=== PATIENT | female | born 1975 | race Caucasian/White ===

== ENCOUNTER 2016-11-23 14:56 | Inpatient (IN) | payer OTHER ==
--- NOTE | ~2016-11-23 | US85 ---
[facility] A Service of [facility] RADIOLOGY TEXT RESULTS PATIENT: CARLO CORREIA LOCATION: [address] : 75 UNIT #: [id number] AGE: [address]: Vazquez Shaw III, MD SEX: F ORDER DR: [id number] [facility] [address] [place], [place] [address] [id number] I MR#: [id number] Acc #: [id number] NAME: CARLO CORREIA : 1975 SEX: F STUDY DATE/TIME: 11/24/2016 10:34 UNIT: [facility] ROOM: [facility] STUDY DESCRIPTION: LE Veins Unilat or Ltd Stdy Attending Physician: Vazquez Shaw III, M.D. Ordering Physician: Jasson Daugherty M.D. Primary Care Physician: Primary Care Physician No MEDICAL IMAGING REPORT This report is preliminary unless electronic signature is present EXAM Left lower extremity venous duplex 11/24/2016 HISTORY Left lower extremity edema in calf and knee for 2 weeks. Evaluate for deep vein thrombosis. TECHNIQUE Venous ultrasound examination of the left lower extremity was performed using grayscale, spectral Doppler and color flow Doppler imaging. FINDINGS The examination is negative. There is no evidence of left lower extremity deep venous thrombus from the groin to the lower calf. Visualized greater saphenous vein is also patent. IMPRESSION Negative examination. No evidence of left lower extremity deep venous thrombosis. Dictated by... Mannie Britt M.D. THIS IS AN ELECTRONICALLY VERIFIED REPORT Mannie Britt M.D. at 11/25/2016 6:17 AM KRT/to TD: 11/24/2016 13:34 JOB #: [id number] MEDICAL IMAGING REPORT Page 1 of 1 COPY
--- NOTE | ~2016-11-23 | A ---
[facility] Nutrition Therapy DATE: 11/24/16 Patient: CARLO CORREIA Physician: JOLANTA Address: [address] [place] [address] Room/Bed: [address], Zip: [place] [address] Admit Date: 11/23/16 Date of : 75 Height: 5 5 Weight: 137 62.5 NUTRITIONAL ASSESSMENT: REASON: NPO in ICU 41 yo female admitted for abdominal pain and distension s/p exploratory laparatomy and repair of perforated ulcer PMH: Longstanding EtOH abuse, opiod abuse, asthma, withdrawal seizures Anthropometrics: Ht: 64" Wt: 62.5 kg BMI: 23.7 Labs: Na+ 131 Cl- 94 Gluc 158 Ca++ 7.4 Alb 1.6 Meds: Therapeutic formula, D5%, phenergan, loperamide, protonix, KCl, MgSO4, thiamine, folvite I/O & Bowel function: 5194/430, last BM 11/18, NG to LWS Skin Integrity: Intact abrasion left knee Closed surgical incision midline abdomen Edema: Pitting 2+ left lower leg Diet: NPO Assessment: Chart reviewed, events noted. 41 yo female admitted for abdominal pain now s/p exploratory laparatomy and repair of perforated ulcer. CT revealed perihepatic ascites, scattered ascites throughout abdomen, and hepatomegaly and steatosis. Pt is strictly NPO at this time, with no plans for nutrition support as of yet. NG to LWS with minimal output per RN report. Pt has been started on CIWA protocol, with a significant h/o EtOH abuse. Pt is moaning, yelling out in room, not appropriate for diet education at this time. Per previous weights in [facility], the pt weighed ~61.4 kg in February 2016, with current weight 62.5 kg. If weights in [facility] are accurate, it does not appear that the pt has lost weight; however, she is noted to have ascites and fluid accumulation. Pt likely has poor nutrition d/t EtOH abuse and GI issues. RD will follow up with the pt to make appropriate recommendations. Dx: Inadequate protein-energy intake RT recent abodminal surgery, PMH AEB NPO status. Intervention: 1. NPO 2. Advance to clear liquid diet once medicalyl feasible [facility] Nutrition Therapy DATE: 11/24/16 Patient: CARLO CORREIA Physician: JOLANTA Address: [address] [place] [address] Room/Bed: [address], Zip: [place] [address] Admit Date: 11/23/16 Date of : 75 Height: 5 5 Weight: 137 62.5 Monitoring, Evaluation and Goals: 1. Oral intake; monitor for diet advancement 2. Improve labs; Na+, glucose, Ca++ 3. GI; promote regular GI function 4. Skin; promote healing, prevent breakdown 5. Weight; prevent weight loss Recommendations: 1. Once medically feasible, advance the pt to a clear liquid diet as tolerated and order Ensure Clear TID for supplemental nutrition. 2. If the pt tolerates clear liquids without c/o n/v or abdominal pain, advance to a 2 gram Na+/ low fiber diet. RD will order supplements as appropriate. If the pt continually tolerates solid food, consider discontinuing low fiber restriction and adding a low fat restriction d/t hepatic steatosis. 3. If the pt is unable to consume nutrition PO, consider an alternative form of nutrition. RD will follow up with appropriate recommendations. Pt is at moderate nutritional risk. Respectfully, CAROL ANN PEARSON RD, LD Food and Nutritional Services [facility] cc: client file
--- NOTE | ~2016-11-23 | OR ---
Unit #: [id number] #: [id number] Patient: CARLO CORREIA [id number] [address] [place], [place] [address] [id number] I MR#: [id number] NAME: CARLO CORREIA ROOM: 464 Date of Procedure: 12/02/2016 Admission Date: 11/23/2016 Surgeon: Geovanny Mercedes P.A.-C- : 1975 Attending Physician: Vazquez Shaw III, M.D. Primary Care Physician: Noris Primary Care Physician PROCEDURE OPERATIVE NOTE REASON FOR PROCEDURE Left knee osteoarthritis. PROCEDURE PERFORMED Cortisone injection. DESCRIPTION OF PROCEDURE After sterile technique with alcohol prep, the patient's left knee was injected with 2 mL 1% Xylocaine and 1 mL of 80 mg of Depo-Medrol per sterile technique with alcohol prep. The patient tolerated the procedure well. There were no apparent complications. A sterile dressing was applied. The patient can follow up in the office in one to two weeks to check on her progress. Dictated by... Jenni Sin KF/bd TD: 12/02/2016 08:25 JOB #: [id number] PROCEDURE OPERATIVE NOTE Page 1 of 1 X X PROCEDURE OPERATIVE NOTE
--- NOTE | ~2016-11-23 | CR264 ---
[facility] A Service [facility] RADIOLOGY TEXT RESULTS PATIENT: CARLO CORREIA LOCATION: [facility] : 75 UNIT #: [id number] AGE: [address]: Vazquez Shaw III, MD SEX: F ORDER DR: [id number] [place] [id number] [facility]. [place], [place] [address] [id number] I MR#: [id number] Acc #: [id number] NAME: CARLO CORREIA : 1975 SEX: F STUDY DATE/TIME: 11/26/2016 10:09 UNIT: [facility] ROOM: [facility] STUDY DESCRIPTION: CR Upper GI Series W KUB Attending Physician: Vazquez Shaw III, M.D. Ordering Physician: Vazquez Shaw III, M.D. Primary Care Physician: No Primary Care Physician MEDICAL IMAGING REPORT This report is preliminary unless electronic signature is present EXAM Upper GI series INDICATIONS Gastric perforation, status post surgical repair. Observation for gastric leak. TECHNIQUE 120 mL of Gastrografin water-soluble contrast was injected through the patient's underlying gastric tube. 60 mL of water was also instilled. FINDINGS There is delayed passage of the contrast through the gastric antrum; however, there is eventual passage through the antrum into the duodenum. No evidence of contrast extravasation. No evidence of a persistent leak. FLUOROSCOPY Fluoroscopic time 1.4 minutes, 11 images acquired. IMPRESSION 1. Delayed passage of contrast through the surgical site is not unexpected, given the recent postsurgical change. 5. No evidence of contrast extravasation into the peritoneal cavity. No evidence of recurrent or persistent leak. Dictated by... Marco A Garrett M.D. THIS IS AN ELECTRONICALLY VERIFIED REPORT Marco A Garrett M.D. at 11/29/2016 3:00 PM NATALIIA/karlee [facility] A Service [facility] RADIOLOGY TEXT RESULTS PATIENT: CARLO CORREIA LOCATION: [facility] 464-01 : 75 UNIT #: [id number] AGE: [address]: Vazquez Shaw III, MD SEX: F ORDER DR: TD: 11/26/2016 18:55 JOB #: [id number] MEDICAL IMAGING REPORT Page 1 of 1 COPY
--- NOTE | ~2016-11-23 | DS ---
Unit #: [id number] #: [id number] Patient: CARLO CORREIA [id number] [address] [place], [place] [address] [id number] I MR#: [id number] NAME: CARLO CORREIA ROOM: 464 Age: 41 Sex: F Admission Date: 11/23/2016 : 1975 Discharge Date: 12/06/2016 Attending Physician: Vazquez Shaw III, M.D. Primary Care Physician: No Primary Care Physician DISCHARGE SUMMARY REVISED REPORT DISCHARGE DIAGNOSES 1. Status post repair of perforated ulcer with pelvic fluid collection. 2. Chronic obstructive pulmonary disease. 3. Alcohol abuse. 4. Back pain. OPERATIVE PROCEDURES Exploratory laparotomy with omental patch of perforated ulcer. DISCHARGE MEDICATIONS Include home medications plus: 1. Doxycycline 100 mg p.o. b.i.d. #20. 2. Diflucan one p.o. daily for seven days, 200 mg. 3. Protonix 40 mg one p.o. b.i.d., #60. 4. Lortab 7.5 mg one p.o. q.4 hours p.r.n. pain. HISTORY OF PRESENT ILLNESS AND HOSPITAL COURSE A 41-year-old white female who had a perforated ulcer. She had a Omental patch repair. She came back with some ileus and it was felt that her surgery on 11/23 that she might have an abscess. The procedure that was done on 11/23 was exploratory lap with omental patch. The patient developed some lower abdominal pain. A followup CT scan showed a collection of fluid in her pelvis. She was not sure whether this was just postop fluid irrigation or whether or not there was a true abscess. The patient's symptoms gradually improved on IV antibiotics. It could not be tapped by the radiologist so it was left alone. The only thing that was elevated at the time of discharge was her WBC count. She was on steroids for her lungs. Dr. Daugherty will administer any medication related to that. We are discharging the patient on Protonix, pain medication, some antibiotics and Diflucan for yeast infection. Dr. Daugherty will write orders for her pulmonary medications if needed. We will see the patient back in the office in 7 to 10 days. Dictated by... Benton Obrien/tawana TD: 12/08/2016 07:09 JOB #: [id number] Unit #: [id number] #: [id number] Patient: CARLO CORREIA DISCHARGE SUMMARY Page 1 of 1 X Bashir Foley MD X DISCHARGE SUMMARY
--- NOTE | ~2016-11-23 | CO ---
Unit #: [id number] #: [id number] Patient: CARLO CORREIA [id number] [address] [place], [place] [address] [id number] I MR#: [id number] NAME: CARLO CORREIA ROOM: [facility] Age: 41 Sex: F Admission Date: 11/23/2016 : 1975 Attending Physician: Vazquez Shaw III, M.D. Consultation Date: 11/24/2016 CONSULTATION REPORT REASON FOR CONSULTATION ICU. HISTORY OF PRESENT ILLNESS A 41-year-old female, who currently is somewhat sedated after surgery and history is limited. She will awaken easily and answer questions. She apparently has no past medical history except for alcohol withdrawal and substance abuse. She had abdominal pain, presented to the emergency room and was found to have an abnormal CAT scan with free air and underwent surgery for perforated ulcer. She has some sputum production, occasional shortness of breath, occasional wheezing, but those are fairly chronic symptoms. Other than her abdominal pain, she has no complaints. PAST MEDICAL HISTORY She denies heart disease or lung disease. She was in our [facility] last year. She does abuse drugs, alcohol, and tobacco. She apparently had a recent fall 2 weeks ago with laceration in left knee, but she did not seek medical care. MEDICATIONS At home, none. ALLERGIES No known medical allergies. SOCIAL HISTORY A pack of cigarettes a day, a fifth of liquor a day and her tox screen was positive for opiates, amphetamine, and marijuana. FAMILY HISTORY No familial lung disease. REVIEW OF SYSTEMS Negative other than above. PHYSICAL EXAMINATION GENERAL: The patient is comfortable in the intensive care unit. VITAL SIGNS: Mildly tachycardiac at 100, she is afebrile, respiratory rate is 18, blood pressure is 110/68, 5 feet 5 inches, and 137 pounds. HEENT: Pupils are equal, round, and reactive to light. Sclerae anicteric. Head atraumatic. NECK: Supple. No supraclavicular or cervical adenopathy appreciated. Equal breath sounds. No wheeze or stridor. CARDIAC: Reveals regular rate and rhythm. No pathologic murmur, rub, or Unit #: [id number] #: [id number] Patient: CARLO CORREIA. ABDOMEN: Postop appropriate tenderness. EXTREMITIES: No clubbing or cyanosis. She has tenderness on the left. She has a positive Homans sign. There is a fairly significant laceration, which obviously is old on her left knee. DIAGNOSTIC STUDIES IMAGING STUDIES: CT of lower lung cuts reviewed and were negative. No chest x-ray has been performed. LABORATORY RESULTS: BUN 22 and creatinine 0.8. White blood cell count is 15.8, which is decreased; hemoglobin 9.5; and platelet count 467. Tox screen as above. Urinalysis; 10 to 25 white cells, urine growing greater in 100,000 gram-negative rods. Blood culture is pending. CARDIOVASCULAR STUDIES: Rhythm strip, sinus tachycardia. No formal EKG. IMPRESSION 1. Postop exploratory laparotomy, perforated ulcer, history of asthma with no current wheezing, chronic sputum production, possible chronic bronchitis from tobacco use. 2. Urinary tract infection. 3. Left leg trauma, likely cellulitis, rule out deep vein thrombosis. 4. Polysubstance abuse. 5. Tobacco use. 6. Alcohol abuse. 7. Anemia. PLAN Antibiotics, chest x-ray, nebulized bronchodilators, watch for alcohol withdrawal. Agree with ICU observation. Thank you very much for allowing me to participate in care of Ms. Melgar. Dictated by... Jasson Daugherty M.D. FATUMA/lonnie TD: 11/25/2016 05:09 JOB #: [id number] CONSULTATION REPORT Page 1 of 1 X Jasson Daugherty MD CONSULTATION REPORT
--- NOTE | ~2016-11-23 | CR72 ---
[facility] A Service of [facility] & [facility] RADIOLOGY TEXT RESULTS PATIENT: CARLO CORREIA LOCATION: [place] [address] : 75 UNIT #: [id number] AGE: [address]: Vazquez Shaw III, MD SEX: F ORDER DR: [id number] [facility] [address] [place], [place] [address] [id number] I MR#: [id number] Acc #: [id number] NAME: CARLO CORREIA : 1975 SEX: F STUDY DATE/TIME: 11/28/2016 4:49 [facility] ROOM: [facility] STUDY DESCRIPTION: CR Chest Single View Portable Attending Physician: Vazquez Shaw III, M.D. Ordering Physician: Elijah Kohli M.D. Primary Care Physician: No Primary Care Physician MEDICAL IMAGING REPORT This report is preliminary unless electronic signature is present EXAM Portable chest INDICATION Respiratory failure. Followup. PROCEDURE Frontal view chest. COMPARISON 11/24/2016 FINDINGS Heart size unchanged. Increasing interstitial and alveolar opacities in both lungs. No visible pneumothorax. IMPRESSION Increasing bilateral opacity representing either worsening edema or pneumonia. Dictated by... Scott Bauer M.D. THIS IS AN ELECTRONICALLY VERIFIED REPORT Scott Bauer M.D. at 11/28/2016 10:24 PM ERIC/joe TD: 11/28/2016 09:11 JOB #: [id number] MEDICAL IMAGING REPORT Page 1 of 1 COPY
--- NOTE | ~2016-11-23 | CR63 ---
[facility] A Service of [facility] RADIOLOGY TEXT RESULTS PATIENT: CARLO CORREIA LOCATION: [place] [address] : [birth year] UNIT #: [id number] AGE: [address]: Vazquez Shaw III, MD SEX: F ORDER DR: [id number] [facility] [address] [facility]. [place], [place] [address] [id number] I MR#: [id number] Acc #: [id number] NAME: CARLO CORREIA : 1975 SEX: F STUDY DATE/TIME: 11/29/2016 7:18 UNIT: [facility] ROOM: [facility] STUDY DESCRIPTION: CR Chest 2 View Attending Physician: Vazquez Shaw III, M.D. Ordering Physician: Elijah Kohli M.D. Primary Care Physician: Primary Care Physician No MEDICAL IMAGING REPORT This report is preliminary unless electronic signature is present EXAM Chest PA and lateral 11/29/2016 HISTORY Shortness of breath for 6 days, respiratory failure. Smoking history. FINDINGS The cardiac and mediastinal structures are stable compared with earlier today at 04:49 a.m. Bilateral infiltrates are unchanged. Right pleural effusion with infiltrate or atelectasis right lower lobe. No pneumothorax. IMPRESSION No change compared with 11/28/2016 at 4:49 a.m. Dictated by... Mannie Britt M.D. THIS IS AN ELECTRONICALLY VERIFIED REPORT Mannie Britt M.D. at 11/29/2016 11:22 AM DONNA/meche TD: 11/29/2016 09:54 JOB #: [id number] MEDICAL IMAGING REPORT Page 1 of 1 COPY
--- NOTE | ~2016-11-23 | FU ---
[facility] Nutrition Therapy DATE: 11/23/16 Patient: CARLO CORREIA Physician: JOLANTA Address: [address] [place] [address] Room/Bed: [address] [place] [address], Zip: [place] [address] Admit Date: 11/23/16 Date of : 75 Height: 5 5 Weight: 165 75 NUTRITION MONITORING/FOLLOW-UP: Reason: nutrition follow-up Anthropometrics: ht: 64" wt: 165# (bed scale) (75 kg) BMI: 28 Labs: Glu 158, Creat 0.5 Meds: librium, protonix, reglan, merrem, furosemide I&O's: 1849/1877 BM 11/29 Skin: pitting edema LT leg- 2+ Diet: NPO Assessment: Chart reviewed, events noted. Pt is NPO at this time, was previously on regular diet. Pt was out of room at time of visit to "go for a walk" (per RN). The RN for this patient reported that the doctor is now changing her diet to GI soft due to a possible ileus. RN reports that the pt was tolerating her previous regular diet. Please see recommendations, RD to continue to follow. Dx: Inadequate protein-energy intake r/t recent abdominal surgery, PMH AEB NPO status-ACTIVE. Intervention: 1. NPO 2. Advance diet to GI soft Monitoring, Evaluation and Goals: 1. Oral intake; monitor for diet advancement -IN PROGRESS/MET 2. Improve labs; Glu, Na+ (improved), Ca++ (improved) 3. GI; promote regular GI function -MET/IN PROGRESS 4. Skin; promote healing prevent breakdown -IN PROGRESS 5. Weight; prevent weight loss -NOT MET/ NO ACCURATE WEIGHT New goals: 1. Oral intake; consume/tolerate >50% of all meals and/or supplements Recommendations: 1. Change diet to GI soft and order ensure enlive if pt not consuming/tolerating >50% of meals for added protein/calorie nutrition support. [facility] Nutrition Therapy DATE: 11/23/16 Patient: CARLO CORREIA Physician: JOLANTA Address: [address] [place] [address] Room/Bed: [address] [place] [address], Zip: [place] [address] Admit Date: 11/23/16 Date of : [birth year] Height: 5 5 Weight: 165 75 2. Encourage adequate PO intake of meals and supplements. 3. If pt does not tolerate diet, consult RD for alternative nutrition support. \\ RD will f/u per protocol as pt is at mild/moderate nutritional risk. Respectfully, ARI HAILE, corporate communications intern Cornelio Aj MS, RD, LD Food and Nutritional Services [facility] cc: client file
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
--- NOTE | ~2016-11-23 | CR72 ---
[facility] A Service of [facility] RADIOLOGY TEXT RESULTS PATIENT: CARLO CORREIA LOCATION: [place] [id number] : 75 UNIT #: [id number] AGE: [address]: Vazquez Shaw III, MD SEX: F ORDER DR: [id number] [facility] [address] [facility] [place], [place] [address] [id number] I MR#: [id number] Acc #: [id number] NAME: CARLO CORREIA : 1975 SEX: F STUDY DATE/TIME: 11/24/2016 10:56 UNIT: [facility] ROOM: [facility] STUDY DESCRIPTION: CR Chest Single View Portable Attending Physician: Vazquez Shaw III, M.D. Ordering Physician: Jasson Daugherty M.D. Primary Care Physician: No Primary Care Physician MEDICAL IMAGING REPORT This report is preliminary unless electronic signature is present EXAM Portable chest, 11/24/2016, [facility]. HISTORY 41-year-old woman, short of air, nausea. COMPARISON Chest, 02/29/2016. FINDINGS AP portable chest demonstrates low inspiration. Cardiac size and configuration are normal. Bilateral lungs are clear. NG tube is advanced into the stomach. IMPRESSION Reduced inspiratory effort with no acute chest finding. Nasogastric tube advanced into the stomach. Dictated by... Vimal Tellez M.D. THIS IS AN ELECTRONICALLY VERIFIED REPORT Vimal Tellez M.D. at 11/24/2016 3:53 PM REINA/rachell TD: 11/24/2016 15:26 JOB #: [id number] MEDICAL IMAGING REPORT Page 1 of 1 COPY
--- NOTE | ~2016-11-23 | CR63 ---
[facility] A Service of [facility] & [facility] RADIOLOGY TEXT RESULTS PATIENT: CARLO CORREIA LOCATION: [place] [address] : 75 UNIT #: [id number] AGE: [address]: Vazquez Shaw III, MD SEX: F ORDER DR: [id number] [facility] [address] [place], [place] [address] [id number] I MR#: [id number] Acc #: [id number] NAME: CARLO CORREIA : 1975 SEX: F STUDY DATE/TIME: 11/30/2016 15:18 UNIT: [facility] ROOM: [facility] STUDY DESCRIPTION: CR Chest 2 View Attending Physician: Vazquez Shaw III, M.D. Ordering Physician: Jasson Daugherty M.D. Primary Care Physician: Primary Care Physician No MEDICAL IMAGING REPORT This report is preliminary unless electronic signature is present EXAM Two-view chest 11/30/2016. INDICATION Elevated white blood cell count. Clinical concern for pneumonia. Shortness of air and nausea. Symptoms began yesterday. Alcohol, drug and tobacco abuse. TECHNIQUE Two-view chest was performed to compare with 11/29/16. FINDINGS Cardiac silhouette is borderline in size and stable. Lung volumes are low. There is bronchovascular crowding with bibasilar atelectasis or infiltrates, right greater than left, similar to the prior study. Probable trace right effusion. No pneumothorax. IMPRESSION 1. Bibasilar atelectasis or infiltrates right greater than left and a trace to small right effusion. No significant change. Dictated by... Jeevan Salazar M.D. THIS IS AN ELECTRONICALLY VERIFIED REPORT Jeevan Salazar M.D. at 12/01/2016 9:17 AM Jazlyn TD: 11/30/2016 22:54 JOB #: [id number] MEDICAL IMAGING REPORT Page 1 of 1 COPY
--- NOTE | ~2016-11-23 | CT107 ---
[facility] A Service of [facility] RADIOLOGY TEXT RESULTS PATIENT: CARLO CORREIA LOCATION: [facility] [address]- : 75 UNIT #: [id number] AGE: [address]: Vazquez Shaw III, MD SEX: F ORDER DR: [id number] [place] [id number] [facility]. [place], [place] [address] [id number] I MR#: [id number] Acc #: [id number] NAME: CARLO CORREIA : 1975 SEX: F STUDY DATE/TIME: 12/02/2016 14:58 UNIT: [facility] ROOM: [facility] STUDY DESCRIPTION: CT Pelvis Wo Cont Attending Physician: Vazquez Shaw III, M.D. Ordering Physician: Daniel Sanford M.D. Primary Care Physician: Primary Care Physician No MEDICAL IMAGING REPORT This report is preliminary unless electronic signature is present EXAM Attempted CT-guided pelvic fluid drainage INDICATION This patient has multiple fluid collections throughout the abdomen. The single largest is seen within the pelvis. She is referred for possible drainage. PROCEDURE This CT examination was performed with one or more of the following radiation dose reduction techniques: automatic exposure control, adjustment of mA and/or kV according to patient size, and iterative reconstruction. The risks, benefits, and alternatives to the procedure were explained to the patient, and signed, informed consent was obtained. She was placed prone on the CT scanner gantry. Preliminary CT scan was performed through the region of interest. The patient's pelvic fluid collection was felt to be located too superiorly for percutaneous drainage at this time. Procedure was subsequently terminated. IMPRESSION Patient's pelvic fluid collection at this point is located too far superiorly to allow for safe percutaneous drainage. At this point, I would suggest repeating the CT scan in several days for reassessment. Dictated by... Agueda Hillman M.D. THIS IS AN ELECTRONICALLY VERIFIED REPORT Agueda Hillman M.D. at 12/03/2016 2:47 PM AFF/mjs [facility] A Service of [facility] & [facility] RADIOLOGY TEXT RESULTS PATIENT: CARLO CORREIA [address] [id number] : [birth year] UNIT #: [id number] AGE: [address]: Vazquez Shaw III, MD SEX: F ORDER DR: TD: 12/03/2016 14:17 JOB #: [id number] MEDICAL IMAGING REPORT Page 1 of 1 COPY
--- NOTE | ~2016-11-23 | CO ---
Unit #: [id number] #: [id number] Patient: CARLO CORREIA [id number] [address] [place], [place] [address] [id number] I MR#: [id number] NAME: CARLO CORREIA. ROOM: [facility] Age: 41 Sex: F Admission Date: 11/23/2016 : 1975 Attending Physician: Vazquez Shaw III, M.D. Consultation Date: 11/23/2016 CONSULTATION REPORT CHIEF COMPLAINT Abdominal pain. HISTORY OF PRESENT ILLNESS This is a 41-year-old lady, whom we were asked to see by the ER physicians for acute abdominal pain. She has a history of heavy alcohol use and developed acute abdominal pain at approximately 10:15 last night. She continued to drink alcohol and even had three shots prior to coming into the ER today. She also has had a recent laceration to her left leg with some redness and swelling that she has not sought any medical attention for. PAST MEDICAL HISTORY Significant for polysubstance abuse. She is a very poor historian. PAST SURGICAL HISTORY She has had a . She is not on any chronic medications. SOCIAL HISTORY She drinks anywhere between a 5th to a half gallon of hard liquor daily and has a history of multiple street drugs use and she smokes cigarettes. FAMILY HISTORY Noncontributory. REVIEW OF SYSTEMS Limited, because of her being in such severe pain and a poor historian. PHYSICAL EXAMINATION VITAL SIGNS: Temperature is 97.5, heart rate is 128, respiratory rate is 31, blood pressure is 143/87. GENERAL: She appears uncomfortable. HEENT: Pupils are equal and reactive to light and accommodation, and her extraocular muscles are intact. NECK: Without masses or bruits. LUNGS: Show good breath sounds bilaterally with equal air exchange. CARDIAC: Shows regular rate and rhythm without murmur. ABDOMEN: Shows guarding with peritoneal signs. It is somewhat distended as well. NEUROLOGIC: She does move all extremities. EXTREMITY: Exam shows no cyanosis or edema. DIAGNOSTIC STUDIES IMAGING STUDIES: CT scan showed free air. Unit #: [id number] #: [id number] Patient: CARLO CORREIA LABORATORY RESULTS: She had elevated white blood count. IMPRESSION This lady has free air likely perforated peptic ulcers. She also shows signs of sepsis. She needs emergent exploratory laparotomy, resuscitation with fluids, and IV antibiotics. She also may need to have incision and drainage of her left knee if it does not respond to antibiotics. Dictated by... Vazquez Shaw III, M.D. VCL/lonnie TD: 11/24/2016 17:45 JOB #: [id number] CONSULTATION REPORT Page 1 of 1 X Vazquez Shaw III, MD CONSULTATION REPORT
--- NOTE | ~2016-11-23 | OR ---
Unit #: [id number] #: [id number] Patient: CARLO CORREIA [id number] [address] [place], [place] [address] [id number] Eunice MR#: [id number] NAME: CARLO CORREIA ROOM: [facility] Date of Procedure: 11/23/2016 Admission Date: 11/23/2016 Surgeon: Vazquez Shaw III, M.D. : 1975 Attending Physician: Vazquez Shaw III, M.D. OPERATIVE REPORT PREOPERATIVE DIAGNOSIS Acute abdomen with pneumoperitoneum. POSTOPERATIVE DIAGNOSIS Acute abdomen with pneumoperitoneum with perforated pyloric ulcer. PROCEDURE PERFORMED Exploratory laparotomy with repair of perforated pyloric ulcer with omental patch. ANESTHESIA General. DRAIN One flat Hernandez-Truong drain was placed. ESTIMATED BLOOD LOSS Minimal. COMPLICATIONS None apparent. INDICATIONS FOR PROCEDURE This is a 41-year-old lady, who has a history of heavy alcohol use, who presented with acute abdominal pain and a CT scan which showed free air. It was suspected that she had a perforated ulcer. She was brought for exploratory laparotomy. DESCRIPTION OF PROCEDURE After consent was obtained, the patient was brought to the operating room and placed in the supine position. General anesthetic was administered. Her abdomen was prepped and draped in standard surgical fashion. I made a midline laparotomy in the upper stomach and entered into the peritoneal cavity without any difficulty. She had approximately a little over a liter of gastric stained fluid. This was all suctioned out. I then was able to easily identify a subcentimeter ulcer in the pyloric region. I was able to place three Lembert sutures across the base of the opening of the ulcer. I then freed up a tongue of omentum and laid it down over the sutures and then secured this down. I then irrigated and had good hemostasis. I placed a flat Hernandez-Truong drain in the left upper quadrant and placed it near the epigastric region. I had excellent hemostasis and all needle, sponge, and instrument counts were correct x2. Unit #: [id number] #: [id number] Patient: CARLO CORREIA I then reapproximated the fascia with interrupted #1 Vicryl sutures and the skin edges were reapproximated with a stapling device. She tolerated the procedure without any problems and returned to the recovery room in stable condition. Dictated by... Vazquez Shaw III, M.D. VCL/lonnie TD: 11/24/2016 17:35 JOB #: [id number] OPERATIVE REPORT Page 1 of 1 X Vazquez Shaw III, MD X PROCEDURE OPERATIVE NOTE
--- NOTE | ~2016-11-23 | CR4 ---
[facility] A Service of [facility] & [facility] RADIOLOGY TEXT RESULTS PATIENT: CARLO CORREIA LOCATION: [place] [address]- : 75 UNIT #: [id number] AGE: [address]: Vazquez Shaw III, MD SEX: F ORDER DR: [id number] [facility] [address] [facility] [facility]. [place], [place] [address] [id number] I MR#: [id number] Acc #: [id number] NAME: CARLO CORREIA : 1975 SEX: F STUDY DATE/TIME: 11/30/2016 8:34 UNIT: [facility] ROOM: [facility] STUDY DESCRIPTION: CR Abdomen Flat Upright or Dec Attending Physician: Vazquez Shaw III, M.D. Ordering Physician: Ambrose Velazquez Jr., M.D. Primary Care Physician: Primary Care Physician No MEDICAL IMAGING REPORT This report is preliminary unless electronic signature is present EXAM Flat and upright abdomen INDICATION No bowel movement since surgery November 23. Abdominal pain and distension. Recent perforated ulcer repair. No comparisons are available. FINDINGS There is gas within the colon and also some residual contrast in the colon. There are no dilated loops of small bowel. No evidence for free air under the diaphragm. IMPRESSION No evidence for obstruction. Gas and retained oral contrast within the colon probably due to ileus given the recent surgery. Dictated by... Papo Buck M.D. THIS IS AN ELECTRONICALLY VERIFIED REPORT Papo Buck M.D. at 12/01/2016 8:14 AM CHER/roselia TD: 11/30/2016 12:55 JOB #: [id number] MEDICAL IMAGING REPORT Page 1 of 1 COPY
--- NOTE | ~2016-11-23 | CR172 ---
[facility] A Service [facility] RADIOLOGY TEXT RESULTS PATIENT: CARLO CORREIA LOCATION: [place] [address] : 75 UNIT #: [id number] AGE: [address]: Vazquez Shaw III, MD SEX: F ORDER DR: [id number] [place] [address] [place], [place] [address] [id number] I MR#: [id number] Acc #: [id number] NAME: CARLO CORREIA : 1975 SEX: F STUDY DATE/TIME: 11/30/2016 15:18 UNIT: [facility]OM[facility] STUDY DESCRIPTION: CR Knee 3 Views Lt Attending Physician: Vazquez Shaw III, M.D. Ordering Physician: Melba Talbert M.D. MEDICAL IMAGING REPORT This report is preliminary unless electronic signature is present EXAM Left knee 11/30/2016 INDICATIONS Knee pain and swelling since yesterday. History of alcohol, drug and tobacco abuse. TECHNIQUE 3 views left knee. COMPARISON STUDIES No comparisons. FINDINGS There is joint space narrowing in the medial compartment with associated osteophytic spurring. No acute fracture. No joint effusion. IMPRESSION 1. Degenerative change in the left knee, most significant in the medial compartment. Otherwise, negative. Dictated by... Jeevan Salazar M.D. THIS IS AN ELECTRONICALLY VERIFIED REPORT Jeevan Salazar M.D. at 12/01/2016 9:17 AM CLAUS/otto TD: 11/30/2016 22:52 JOB #: [id number] [facility] A [facility] RADIOLOGY TEXT RESULTS PATIENT: CARLO CORREIA LOCATION: [place] [address] : [birth year] UNIT #: [id number] AGE: [address]: Vazquez Shaw III, MD SEX: F ORDER DR: MEDICAL IMAGING REPORT Page 1 of 1 COPY
--- NOTE | ~2016-11-23 | CT2 ---
[facility] A Service of [facility] RADIOLOGY TEXT RESULTS PATIENT: CARLO CORREIA LOCATION: [facility] 464- : 75 UNIT #: [id number] AGE: [address]: Vazquez Shaw III, MD SEX: F ORDER DR: [id number] [facility] [address]. [place], [place] [address] [id number] MR#: [id number] Acc #: [id number] NAME: CARLO CORREIA : 1975 SEX: F STUDY DATE/TIME: 12/01/2016 12:29 UNIT: [facility] ROOM: 4 STUDY DESCRIPTION: CT Abd and Pelv W Cont Attending Physician: Vazquez Shaw III, M.D. Ordering Physician: Yogi Daley M.D. MEDICAL IMAGING REPORT This report is preliminary unless electronic signature is present EXAM CT abdomen and pelvis 12/01/2017 HISTORY Status post status post ulcer with elevated white blood cell count. Diffuse abdomen pain since 11/18/2016. TECHNIQUE CT of the abdomen and pelvis performed with intravenous administration 100 mL Isovue-370. Enteric contrast also administered. This CT exam was performed with one or more of the following radiation dose reduction techniques: automatic exposure control, adjustment of mA and/or kV according to patient size, and iterative reconstruction. COMPARISON STUDIES 11/23/2016. FINDINGS The lung bases show increased linear interstitial prominence. Patchy areas of ground-glass density. Significant dependent atelectasis in the right lower lobe. These findings are new or increased compared to prior examination. There is a new small left pleural effusion. Moderate right pleural effusion. The right effusion has significantly increased in size. Pulmonary basilar findings concerning for etlp-yo-dhsinbrr pulmonary edema with interstitial, alveolar and pleural space components. Inferior heart and pericardium unremarkable. Stable fatty infiltration of the liver. Stable hepatic enlargement. No focal fatty parenchymal abnormality. The gallbladder shows slight gallbladder wall prominence. This is significantly decreased from the prior examination. No compelling evidence of acute cholecystitis. The spleen, pancreas, adrenal glands, kidneys show no significant abnormality. [facility] A Service of [facility] RADIOLOGY TEXT RESULTS PATIENT: CARLO CORREIA LOCATION: [place] [address] : 75 UNIT #: [id number] AGE: [address]: Vazquez Shaw III, MD SEX: F ORDER DR: CT PELVIS: No inguinal adenopathy. Urinary bladder unremarkable. Adnexal dermoid along the anterior aspect of the uterus measuring up to 10 cm in diameter. Not significantly changed from prior study. Contains soft tissue fatty and calcific components. Gynecologic consultation strongly recommended. There is a localized fluid collection in the cul-de-sac measuring about 13.4 cm x 3.7 cm x 3.9 cm, previously 12.9 cm x 3.4 cm x 4.2 cm. It is probably stable or slightly increased in volume. It contains air and there is enhancement at its periphery. Appearance consistent with abscess. Small pelvic lymph nodes. There are multiple small retroperitoneal lymph nodes and multiple small bowel mesenteric lymph nodes, likely reactive in nature. The distal esophagus is unremarkable. There is mild gastric distension with food debris. No obstructing process. Correlate with ingestion history. The small bowel contains contrast material, air and fluid throughout its course. There is abnormal distension of some loops of jejunum in the left vonda-abdomen measuring up to 3.5 cm in diameter. Small bowel loops in this region measured about 2.6 cm in diameter on prior study. Small bowel wall and fold thickening markedly improved to resolve on the current examination as compared to the prior. There is air, fluid and contrast material seen throughout the small bowel to the colon. I would favor that the appearance of the distended small bowel is a reflection of ongoing ileus. There is no compelling evidence of small bowel obstruction. The appendix is normal. Colon contains air, stool and contrast material throughout its course. Mild stool and gaseous distension of the colon, probably reflecting mild colonic ileus. Fluid collection adjacent to the liver almost completely resolved. There is a small amount of fluid with some peripheral enhancement along the inferior aspect of the right hepatic lobe adjacent to the hepatic flexure of colon. This residual fluid collection measures about 6 cm x 1.2 cm on current examination, previously 4.1 cm x 8.9 cm. Continued followup to complete resolution is recommended. More inferiorly in the upper right pelvis, there is a localized fluid collection measuring about 4.9 cm x 2.1 cm x 1.9 cm. Some peripheral enhancement and small internal air bubble. A small abscess favored. In the left pericolic gutter, there is a localized fluid collection which extends approximately 14 cm in craniocaudal extent. It extends medially along its inferior aspect. The component in the pericolic gutter measures about 14 cm in craniocaudal extent x up to 3 cm in transverse diameter. The inferior component measures about 7.8 cm transversely x 2.5 cm in AP dimension x approximately 2.6 cm in craniocaudal extent. There is some peripheral enhancement along this of fluid collection. There is no internal air. The inferomedial portion of this fluid collection has generally decreased in volume compared to 11/23/2016. The craniocaudal component in the pericolic gutter appears more localized and slightly increased in volume. Deep to the left paracentral anterior pelvic wall, there appears to be a localized fluid collection with some peripheral enhancement but no internal air, measuring about 1.9 cm x 5.7 cm transversely. Not clearly present as localized fluid on the prior study. Continued followup recommended. This fluid collection probably extends STS. [facility] A Service of [facility] RADIOLOGY TEXT RESULTS PATIENT: CARLO CORREIA LOCATION: [facility] 464- : 75 UNIT #: [id number] AGE: [address]: Vazquez Shaw III, MD SEX: F ORDER DR: craniocaudally about 5.4 cm. There is evidence of intervening abdominal surgery. Anterior midline abdominal wall incision with surgical skin rakesh present. Small amount of air and fluid in the incision. Correlate with time course from history. Probably within normal limits for a short time course from surgery. The dominant fluid in the incision measures about 1.7 cm x 1.9 cm x 7.2 cm. I do not see clear indication of adjacent inflammatory change. I favor that this is evolving postoperative fluid. Attention at followup recommended. Vascular structures unremarkable. The bony structures show no acute abnormality. IMPRESSION 1. Multiple abnormalities. Please see the complete dictation above for full details. Compared to the prior examination 11/23/2016, patient appears to have developed bubh-ub-vqbxaowf pulmonary edema in the visualized lung bases with linear interstitial prominence and patchy areas of ground-glass density. New small left pleural effusion significantly increased, now moderate right pleural effusion. Significant atelectasis in the right lower lobe. 2. Patient is status post abdominal surgical intervention. Midline abdominal wall incision. Some air and fluid in the incision plane without obvious inflammatory change. I favor that this is evolving postoperative change. The dominant fluid collection in the upper midline incisional plane measures 1.7 cm x 1.9 cm x 7.2 cm. Correlate clinically for any signs or symptoms of infection. 3. Significantly diminished overall fluid collections in the abdomen. Small residual fluid collection along the inferior right hepatic lobe. Decreased in volume from prior study but with some peripheral enhancement, raising possibility of abscess. No internal air bubbles of this location. Somewhat J-shaped fluid collection extending along the left pericolic gutter and then turning medially along its inferior aspect. See insurance claim representative measurements in body of report above. The more inferomedial component is probably decreased from prior study. The component in the left pericolic gutter is new or increased and certainly, more organized than fluid in this region on prior study. Again. no air bubble but there is peripheral enhancement. Infected fluid is a consideration. There is a fluid collection in the anterior left vonda-pelvis which is new compared to prior study measuring 1.9 cm x 5.7 cm x about 5.4 cm. Again, there is no internal air but there is peripheral enhancement. raising possibility of active. 4. There is an apparent abscess in the cul-de-sac measuring 13.4 cm x 3.7 cm x 3.9 cm. Stable to perhaps slightly increased in volume from prior study. Peripheral enhancement of the abscess wall and small internal air bubbles. 5. Generally improved appearance of the small bowel. There continues to be dilatation of some jejunal loops in the left vonda-abdomen measuring up to about 3.5 cm in diameter but there is a marked decrease in generalized small bowel wall thickening and enhancement. I would favor that the residual jejunal dilatation is a function of evolving ileus. Air, fluid and contrast material seen throughout small bowel to colon. [facility]. [facility] A Service of [facility] RADIOLOGY TEXT RESULTS PATIENT: CARLO CORREIA LOCATION: [facility] 464-01 : 75 UNIT #: [id number] AGE: [address]: Vazquez Shaw III, MD SEX: F ORDER DR: 6. 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 No change. Given size, gynecologic consultation strongly recommended when clinically appropriate for patient. 7. Moderate air and stool burden in colon with mild gaseous and stool distension of transverse colon. No obstructing process. Likely reflecting mild colonic ileus secondary to intraabdominal inflammation. 8. Retroperitoneal and mesenteric adenopathy. Likely reactive in nature. Attention at followup recommended. 9. Stable hepatic enlargement and hepatic steatosis. 10. Mild gallbladder wall prominence, significantly decreased from prior examination with no gallbladder wall enhancement as suggested on prior study. No indication of acute cholecystitis. 11. Not mentioned in body of report above, patient status post bilateral tubal ligation. There is an old healed posterior left rib fracture, unchanged from prior study. Dictated by... Albin Cervantes M.D. THIS IS AN ELECTRONICALLY VERIFIED REPORT Albin Cervantes M.D. at 12/02/2016 6:42 PM ALONDRA/otto TD: 12/01/2016 18:22 JOB #: [id number] MEDICAL IMAGING REPORT Page 1 of 1 COPY
--- NOTE | ~2016-11-23 | CT2 ---
[facility] A Service of [facility] & [facility] RADIOLOGY TEXT RESULTS PATIENT: CARLO CORREIA LOCATION: [address] : 75 UNIT #: [id number] AGE: [address]: Vazquez Shaw III, MD SEX: F ORDER DR: [id number] [facility] [address]. [place], [place] [address] [id number] I MR#: [id number] Acc #: [id number] NAME: CARLO CORREIA : 1975 SEX: F STUDY DATE/TIME: 11/23/2016 15:48 UNIT: [facility] ROOM: [facility] STUDY DESCRIPTION: CT Abd and Pelv W Cont Attending Physician: Vazquez Shaw III, M.D. Ordering Physician: David Knox D.O. Primary Care Physician: Primary Care Physician No MEDICAL IMAGING REPORT This report is preliminary unless electronic signature is present EXAM CT abdomen and pelvis with contrast INDICATIONS Abdominal pain and distension and constipation for the past 5 days. PROCEDURE Contrast-enhanced CT of the abdomen and pelvis. This CT exam was performed with one or more of the following radiation dose reduction techniques: Automatic exposure control, adjustment of mA and/or kV according to patient size, and iterative reconstruction. COMPARISON 02/29/2016 FINDINGS ABDOMEN WITH CONTRAST: There is a trace right pleural effusion, minimal atelectasis at the right lung base. Liver enlarged measuring 20.1 cm. Hepatic steatosis. There is a moderate amount of perihepatic ascites and scattered ascites throughout the remainder of the abdomen. Scattered foci of free intraperitoneal air. There is enhancement of the liver capsule. Spleen unremarkable. Kidneys, adrenal glands, pancreas, gallbladder unremarkable. There is scattered stool and gas in the colon. There is diffuse thickening of small bowel loops, which are nondilated. There are scattered fluid-pockets insinuated between small bowel loops that show nondependent foci of air. A pocket in the left lower quadrant measures 5.4 x 2.9 cm. A pocket in the right lower quadrant measures 5.1 cm. PELVIS WITH CONTRAST: Right adnexal dermoid extends into the anterior pelvis measures 9.4 cm. Fluid in the cul-de-sac has thin rim enhancement. [facility]. [facility] A Service of [facility] RADIOLOGY TEXT RESULTS PATIENT: CARLO CORREIA LOCATION: [facility]19 : 75 UNIT #: [id number] AGE: [address]: Vazquez Shaw III, MD SEX: F ORDER DR: It measures approximately 12.9 x 3.5 cm and has nondependent foci of air. No aggressive appearing bone lesion. IMPRESSION 1. Hepatomegaly with steatosis. 2. Moderate amount of fluid scattered throughout the abdomen and pelvis as detailed above. Some of these fluid pockets contain nondependent foci of air which are suspicious for abscess. There is also capsular enhancement of the liver, suggesting that the perihepatic fluid may be infected. Correlate with any recent procedure. 3. Diffuse small bowel wall thickening is nonspecific. It may be reactive or represent enteritis. 4. Presence of free air could be seen in the setting of a perforated viscus. No definite source is seen on this study. 5. Large right adnexal dermoid, similar to the previous study. Dictated by... Scott Bauer M.D. THIS IS AN ELECTRONICALLY VERIFIED REPORT Scott Bauer M.D. at 11/24/2016 2:01 PM ERIC/billy TD: 11/23/2016 20:59 JOB #: [id number] MEDICAL IMAGING REPORT Page 1 of 1 COPY
--- NOTE | ~2016-11-23 | CO ---
Unit #: [id number] #: [id number] Patient: CARLO CORREIA [id number] [address] [place], [place] [address] [id number] MR#: [id number] NAME: CARLO CORREIA ROOM: 464 Age: 41 Sex: F Admission Date: 11/23/2016 : 1975 Attending Physician: Vazquez Shaw III, M.D. Primary Care Physician: No Primary Care Physician Consultation Date: 11/28/2016 CONSULTATION REPORT REASON FOR CONSULTATION Impending DTs. HISTORY OF PRESENT ILLNESS The patient is a 41-year-old female with a past medical history of alcohol abuse, polysubstance abuse, asthma/COPD who was admitted by Dr Shaw on 11/23/2016 for perforated viscous. HIPS was consulted for alcohol withdrawal. The patient apparently started having abdominal pain on November 22, 2016 and she had associated nausea but no vomiting. She was seen in the emergency department. A CT was done and showed perforated viscous. She was admitted by Dr. Shaw. On 11/23/2016, she underwent exploratory laparotomy with repair of perforated pyloric ulcer and omental patch. A Hernandez-Truong drain was placed. On the day of admission, the patient was also noted to have a wound involving the left knee. She had apparently cut her knee on glass. She had surrounding cellulitis. She had been on both vancomycin and Zosyn. She was initially admitted to the ICU due to concerns for DTs requiring IV Ativan. She has been transferred to the fourth floor. HIPS was consulted for possible alcohol withdrawal. Regarding alcohol abuse, the patient drinks a fifth of liquor daily. her last drink was on 11/22/2016. It has been six days since her last drink. Per my discussion with a nurse, she took 1 mg of Ativan p.o. within the past 24 hours. She also has a history of polysubstance abuse including opiates, amphetamine an marijuana. PAST MEDICAL HISTORY 1. Admission to [facility] 02/29/2016 though 03/04/2016 for alcohol dependence. 2. Asthma/COPD. PAST SURGICAL HISTORY 1. Exploratory laparotomy with repair of perforated ulcer. 2. . SOCIAL HISTORY The patient lives with her boyfriend. She smokes a pack of cigarettes daily. She drinks a fifth of liquor daily. She reports amphetamine use, as well as marijuana. She denies IV drug use. FAMILY HISTORY Notable for her mother being a victim of homicide. Unit #: [id number] #: [id number] Patient: CARLO CORREIA ALLERGIES No known allergies. CURRENT MEDICATIONS Bactrim, Protonix, multivitamin, albuterol, Phenergan. REVIEW OF SYSTEMS A complete review of systems is negative except as indicated in the HPI. PHYSICAL EXAMINATION VITAL SIGNS: Temperature 97.4, pulse 98, respirations 18, blood pressure 107/52, oxygen saturation is 92%. GENERAL: The patient is a female who is awake and alert in no acute distress. HEENT: The head is atraumatic. Mucous membranes are moist. NECK: Supple. Trachea is midline. CARDIOVASCULAR: Regular rate and rhythm. LUNGS: Clear to auscultation bilaterally with no increased work of breathing. ABDOMEN: Somewhat distended. Bowel sounds are decreased. She does have bandages that are clean, dry, and intact. She also had a Hernandez-Truong drain. EXTREMITIES: The left knee demonstrates an incised wound that is about less than an inch with no surrounding erythema, warmth or tenderness. There is no pedal edema. NEUROLOGIC: The patient is awake and alert. She is oriented x3. She follows commands. PSYCH: Mood and affect are normal. The patient is cooperative. SKIN: Skin of examined areas is warm and dry. DIAGNOSTIC STUDIES LABORATORY STUDIES: Urine culture from 11/23/2016 grew greater than 100,000 Klebsiella that was sensitive to Bactrim. Complete blood cont from today notable for white blood cell count of 18.6, hemoglobin and hematocrit 8.5 and 26.1, respectively. Platelets are 532. Basic metabolic panel notable for sodium of 131, potassium 3.3, glucose 143, BUN and creatinine 6 and 0.5 respectively, calcium is 7.4. ASSESSMENT The patient is a 41-year-old female with: 1. Postop day #5 status post exploratory laparotomy with repair of perforated ulcer. 2. Klebsiella pneumoniae UTI, currently on Bactrim. 3. History of left knee incised wound/cellulitis. The patient was on vancomycin and Zosyn that has been discontinued. The wound looks today. 4. Alcohol abuse with last drink on 11/22/2016. 5. Polysubstance abuse with urine tox screen being positive for amphetamines, marijuana, and opiates on 11/23/2016. PLAN Regarding possible alcohol withdrawal, the patient's last drink was 11/22/2016. She was apparently somewhat agitated this morning and received a dose of p.o. Ativan. I have started the patient on Librium. I have also asked the care managers and healthcare social worker to see the patient for possible rehab. Thank you very much for the consultation. We will follow the patient Unit #: [id number] #: [id number] Patient: CARLO CORREIA along closely with you. Dictated by... Marley Mojica M.D. JERILYN/mignon TD: 11/28/2016 13:20 JOB #: [id number] CONSULTATION REPORT Page 1 of 1 X Marley Mojica MD X CONSULTATION REPORT
[~2016-11-23 14:56] MED LIST: VICODIN 5/500 T1 TAB PO
[2016-11-23 15:39] LABS: BASOPHIL# 0.1 X10e3 (0-0.3); BASOPHIL% 0.3 % (0-2.5); HEMOGLOBIN 11.9 gm/dL (12.0-16.0); LYMPHOCYTE# 0.8 X10e3 (1.0-3.5); LYMPHOCYTE% 3.6 % (17.0-45.0); MEAN CELL VOLUME 94.7 FL (83-96); MEAN CORPUSCULAR HEMOGLOBIN 31.3 PG (28-34); MEAN CORPUSCULAR HGB CONC 33.1 g/dL (30-36); MEAN PLATELET VOLUME 7.3 FL (6.5-11.5); MONOCYTE# 0.5 X10e3 (0-1.0); MONOCYTE% 2.5 % (3.0-12.0); NEUTROPHIL# 19.8 X10e3 (1.5-7.1); NEUTROPHIL% 93.6 % (40-75); PLATELET COUNT 625 X10e3 (140-420); RED CELL DISTRIBUTION WIDTH 13.8 % (11.0-15.5); WHITE BLOOD COUNT 21.1 X10e3 (4.0-10.5)
[2016-11-23 15:41] LABS: DIFF IND YES
[2016-11-23 15:56] LABS: PLATELET ESTIMATE INCREASED (NORMAL)
[2016-11-23 15:57] LABS: VACUOLIZATION MOD
[2016-11-23 15:59] LABS: STOMATOCYTE PRESENT
[2016-11-23 16:01] LABS: ACETAMINOPHEN <10 ug/mL; ALBUMIN SERUM 2.7 g/dL (3.5-5.0); ALCOHOL BLOOD 28 mg/dL (0); ALKALINE PHOSPHATASE 109 U/L (32-92); ALT (SGPT) 50 U/L (10-40); AST (SGOT) 39 U/L (10-42); BILIRUBIN, DIRECT 0.1 mg/dL (0.0-0.2); BILIRUBIN,TOTAL 0.1 mg/dL (0.2-2.0); BLOOD UREA NITROGEN 21 mg/dL (9-23); CALCIUM SERUM 8.7 mg/dL (8.4-10.2); CARBON DIOXIDE 26 mmol/L (22-31); CHLORIDE 89 mmol/L (100-111); GLUCOSE FASTING 176 mg/dL (70-110); LIPASE 31 U/L (22-51); POTASSIUM 2.9 mmol/L (3.5-5.1); PROTEIN TOTAL SERUM 7.3 g/dL (6.0-8.3); SALICYLATE <4.0 mg/dL; SODIUM 130 mmol/L (135-145)
[2016-11-23 16:41] LABS: URINE SOURCE CLEAN CATCH
[2016-11-23 16:46] LABS: URINE APPEARANCE CLEAR; URINE BILIRUBIN NEG (NEG); URINE BLOOD NEG (NEG); URINE COLOR YELLOW; URINE GLUCOSE NEG (NEG); URINE KETONE NEG (NEG); URINE LEUKOCYTE ESTERASE TRACE (NEG); URINE NITRATE NEG (NEG); URINE PH 5.5 (5-8); URINE PROTEIN TRACE (NEG); URINE SPECIFIC GRAVITY 1.073 (1.003-1.035)
[2016-11-23 16:49] LABS: CULTURE INDICATED? YES
[2016-11-23] MEDS ORDERED: NO MEDICATIONS (16:49)
[2016-11-23 16:58] LABS: AMPHETAMINE POS (NEG); BARBITURATES NEG (NEG); BENZODIAZEPINES NEG (NEG); COCAINE NEG (NEG); MARIJUANA POS (NEG); OPIATES POS (NEG); TRICYCLIC ANTIDEPRESSANTS NEG (NEG); U METHADONE NEG (NEG)
[2016-11-23 17:01] LABS: URINE BACTERIA AUWI 2+ (NEGATIVE); URINE SQUAMOUS EPITHELIAL CELL FEW /[HPF]
[2016-11-23 20:31] LABS: POC - CREATININE 1.05 mg/dL (0.44-1.03); POC - GFR >60.0 mL/min (>60)
[2016-11-24 05:22] LABS: BASOPHIL% 0.3 % (0-2.5); EOSINOPHIL% 0.2 % (0.0-7.0); HEMATOCRIT 29.3 % (35.0-45.0); LYMPHOCYTE# 0.7 X10e3 (1.0-3.5); LYMPHOCYTE% 4.6 % (17.0-45.0); MEAN CELL VOLUME 96.2 FL (83-96); MEAN CORPUSCULAR HEMOGLOBIN 31.2 PG (28-34); MEAN CORPUSCULAR HGB CONC 32.4 g/dL (30-36); MEAN PLATELET VOLUME 7.3 FL (6.5-11.5); MONOCYTE# 0.6 X10e3 (0-1.0); NEUTROPHIL# 14.3 X10e3 (1.5-7.1); NEUTROPHIL% 90.9 % (40-75); PLATELET COUNT 467 X10e3 (140-420); RED BLOOD COUNT 3.05 X10e (3.90-5.30); RED CELL DISTRIBUTION WIDTH 13.5 % (11.0-15.5); WHITE BLOOD COUNT 15.8 X10e3 (4.0-10.5)
[2016-11-24 05:23] LABS: HEMOGLOBIN 9.5 gm/dL (12.0-16.0)
[2016-11-24 05:24] LABS: DIFF IND NO
[2016-11-24 06:16] LABS: ALBUMIN SERUM 1.6 g/dL (3.5-5.0); BILIRUBIN,TOTAL 0.8 mg/dL (0.2-2.0); BUN/CREATININE RATIO 27.5; CALCIUM SERUM 7.4 mg/dL (8.4-10.2); CREATININE SERUM 0.8 mg/dL (0.6-1.4); GLOM FILT RATE Estimated 91.7 mL/min (>60); MAGNESIUM 1.7 mg/dL (1.6-3.0); PROTEIN TOTAL SERUM 4.8 g/dL (6.0-8.3)
[2016-11-24 06:18] LABS: POTASSIUM 4.8 mmol/L (3.5-5.1)
[2016-11-24 12:08] LABS: THYROID STIMULATING HORMONE 1.28 uIU/ml (0.34-5.60)
[2016-11-24 12:15] LABS: FREE THYROXIN (T4) 0.83 ng/dL (0.58-1.64)
[2016-11-25 05:36] LABS: BASOPHIL# 0.1 X10e3 (0-0.3); BASOPHIL% 0.4 % (0-2.5); EOSINOPHIL# 0.1 X10e3 (0-0.7); EOSINOPHIL% 0.6 % (0.0-7.0); HEMOGLOBIN 8.7 gm/dL (12.0-16.0); LYMPHOCYTE# 1.5 X10e3 (1.0-3.5); LYMPHOCYTE% 9.1 % (17.0-45.0); MEAN CORPUSCULAR HEMOGLOBIN 30.9 PG (28-34); MEAN CORPUSCULAR HGB CONC 32.2 g/dL (30-36); MONOCYTE# 0.5 X10e3 (0-1.0); MONOCYTE% 2.8 % (3.0-12.0); NEUTROPHIL# 14.6 X10e3 (1.5-7.1); NEUTROPHIL% 87.1 % (40-75); PLATELET COUNT 487 X10e3 (140-420); RED BLOOD COUNT 2.82 X10e (3.90-5.30); WHITE BLOOD COUNT 16.8 X10e3 (4.0-10.5)
[2016-11-25 05:40] LABS: DIFF IND NO
[2016-11-25 07:10] LABS: ALBUMIN SERUM 1.5 g/dL (3.5-5.0); BILIRUBIN,TOTAL 0.6 mg/dL (0.2-2.0); BUN/CREATININE RATIO 21.42; CALCIUM SERUM 7.2 mg/dL (8.4-10.2); CREATININE SERUM 0.7 mg/dL (0.6-1.4); GLOM FILT RATE Estimated 107.6 mL/min (>60); POTASSIUM 3.6 mmol/L (3.5-5.1); PROTEIN TOTAL SERUM 4.8 g/dL (6.0-8.3)
[2016-11-26 06:34] LABS: BASOPHIL% 0.2 % (0-2.5); EOSINOPHIL# 0.1 X10e3 (0-0.7); EOSINOPHIL% 0.5 % (0.0-7.0); HEMATOCRIT 26.2 % (35.0-45.0); HEMOGLOBIN 8.5 gm/dL (12.0-16.0); LYMPHOCYTE# 1.3 X10e3 (1.0-3.5); MEAN CORPUSCULAR HGB CONC 32.3 g/dL (30-36); MEAN PLATELET VOLUME 6.8 FL (6.5-11.5); MONOCYTE# 0.8 X10e3 (0-1.0); MONOCYTE% 4.1 % (3.0-12.0); NEUTROPHIL% 88.2 % (40-75); PLATELET COUNT 533 X10e3 (140-420); RED BLOOD COUNT 2.73 X10e (3.90-5.30); WHITE BLOOD COUNT 19.3 X10e3 (4.0-10.5)
[2016-11-26 06:37] LABS: DIFF IND YES
[2016-11-26 06:54] LABS: BUN/CREATININE RATIO 11.42; CALCIUM SERUM 7.3 mg/dL (8.4-10.2); CREATININE SERUM 0.7 mg/dL (0.6-1.4); GLOM FILT RATE Estimated 107.6 mL/min (>60); PHOSPHOROUS 2.5 mg/dL (2.5-4.6); POTASSIUM 3.5 mmol/L (3.5-5.1)
[2016-11-26 08:01] LABS: ANISOCYTOSIS SL; PLATELET ESTIMATE INCREASED (NORMAL); RBC NORMAL YES
[2016-11-26 09:29] LABS: URINE SOURCE CATH
[2016-11-26 09:59] LABS: URINE APPEARANCE CLEAR; URINE BILIRUBIN NEG (NEG); URINE BLOOD NEG (NEG); URINE COLOR YELLOW; URINE GLUCOSE NEG (NEG); URINE KETONE NEG (NEG); URINE LEUKOCYTE ESTERASE NEG (NEG); URINE NITRATE NEG (NEG); URINE PROTEIN TRACE (NEG); URINE SPECIFIC GRAVITY 1.013 (1.003-1.035)
[2016-11-26 10:21] LABS: CULTURE INDICATED? NO
[2016-11-27 06:01] LABS: BASOPHIL% 0.2 % (0-2.5); EOSINOPHIL# 0.1 X10e3 (0-0.7); EOSINOPHIL% 0.7 % (0.0-7.0); HEMATOCRIT 24.2 % (35.0-45.0); LYMPHOCYTE# 1.4 X10e3 (1.0-3.5); LYMPHOCYTE% 9.3 % (17.0-45.0); MEAN CELL VOLUME 94.4 FL (83-96); MEAN CORPUSCULAR HEMOGLOBIN 31.1 PG (28-34); MEAN PLATELET VOLUME 6.7 FL (6.5-11.5); MONOCYTE% 6.3 % (3.0-12.0); NEUTROPHIL# 12.9 X10e3 (1.5-7.1); NEUTROPHIL% 83.5 % (40-75); PLATELET COUNT 526 X10e3 (140-420); RED BLOOD COUNT 2.57 X10e (3.90-5.30); RED CELL DISTRIBUTION WIDTH 14.3 % (11.0-15.5); WHITE BLOOD COUNT 15.5 X10e3 (4.0-10.5)
[2016-11-27 06:02] LABS: DIFF IND NO
[2016-11-27 06:14] LABS: ALBUMIN SERUM 1.6 g/dL (3.5-5.0); BILIRUBIN,TOTAL 0.2 mg/dL (0.2-2.0); CALCIUM SERUM 6.8 mg/dL (8.4-10.2); CREATININE SERUM 0.5 mg/dL (0.6-1.4); GLOM FILT RATE Estimated 120.2 mL/min (>60); POTASSIUM 3.2 mmol/L (3.5-5.1); PROTEIN TOTAL SERUM 5.5 g/dL (6.0-8.3)
[2016-11-28 03:27] LABS: BASOPHIL# 0.1 X10e3 (0-0.3); BASOPHIL% 0.3 % (0-2.5); EOSINOPHIL% 0.2 % (0.0-7.0); HEMATOCRIT 26.1 % (35.0-45.0); HEMOGLOBIN 8.5 gm/dL (12.0-16.0); LYMPHOCYTE# 1.3 X10e3 (1.0-3.5); MEAN CELL VOLUME 94.3 FL (83-96); MEAN CORPUSCULAR HEMOGLOBIN 30.6 PG (28-34); MEAN CORPUSCULAR HGB CONC 32.4 g/dL (30-36); MEAN PLATELET VOLUME 7.4 FL (6.5-11.5); MONOCYTE# 1.1 X10e3 (0-1.0); MONOCYTE% 5.6 % (3.0-12.0); NEUTROPHIL# 16.2 X10e3 (1.5-7.1); NEUTROPHIL% 86.9 % (40-75); PLATELET COUNT 532 X10e3 (140-420); RED BLOOD COUNT 2.77 X10e (3.90-5.30); RED CELL DISTRIBUTION WIDTH 14.5 % (11.0-15.5); WHITE BLOOD COUNT 18.6 X10e3 (4.0-10.5)
[2016-11-28 03:29] LABS: DIFF IND NO
[2016-11-28 03:30] LABS: CALCIUM SERUM 7.4 mg/dL (8.4-10.2); CREATININE SERUM 0.5 mg/dL (0.6-1.4); GLOM FILT RATE Estimated 120.2 mL/min (>60); POTASSIUM 3.3 mmol/L (3.5-5.1)
[2016-11-29 02:28] LABS: HEMATOCRIT 23.7 % (35.0-45.0); HEMOGLOBIN 7.8 gm/dL (12.0-16.0); MEAN CELL VOLUME 94.2 FL (83-96); MEAN CORPUSCULAR HEMOGLOBIN 30.8 PG (28-34); MEAN CORPUSCULAR HGB CONC 32.7 g/dL (30-36); MEAN PLATELET VOLUME 6.5 FL (6.5-11.5); RED BLOOD COUNT 2.52 X10e (3.90-5.30); RED CELL DISTRIBUTION WIDTH 14.4 % (11.0-15.5); WHITE BLOOD COUNT 16.6 X10e3 (4.0-10.5)
[2016-11-29 02:53] LABS: ALBUMIN SERUM 1.6 g/dL (3.5-5.0); BILIRUBIN,TOTAL 0.5 mg/dL (0.2-2.0); CALCIUM SERUM 7.7 mg/dL (8.4-10.2); CREATININE SERUM 0.5 mg/dL (0.6-1.4); GLOM FILT RATE Estimated 120.2 mL/min (>60); MAGNESIUM 1.5 mg/dL (1.6-3.0); POTASSIUM 3.1 mmol/L (3.5-5.1); PROTEIN TOTAL SERUM 5.4 g/dL (6.0-8.3)
[2016-11-30 06:29] LABS: BASOPHIL# 0.1 X10e3 (0-0.3); BASOPHIL% 0.5 % (0-2.5); DIFF IND YES; HEMATOCRIT 23.5 % (35.0-45.0); HEMOGLOBIN 7.7 gm/dL (12.0-16.0); LYMPHOCYTE# 1.7 X10e3 (1.0-3.5); LYMPHOCYTE% 6.7 % (17.0-45.0); MEAN CELL VOLUME 93.8 FL (83-96); MEAN CORPUSCULAR HEMOGLOBIN 30.7 PG (28-34); MEAN CORPUSCULAR HGB CONC 32.7 g/dL (30-36); MONOCYTE# 0.1 X10e3 (0-1.0); MONOCYTE% 0.2 % (3.0-12.0); NEUTROPHIL# 23.1 X10e3 (1.5-7.1); NEUTROPHIL% 92.6 % (40-75); RED BLOOD COUNT 2.51 X10e (3.90-5.30); RED CELL DISTRIBUTION WIDTH 14.4 % (11.0-15.5)
[2016-11-30 07:08] LABS: PLATELET ESTIMATE INCREASED (NORMAL)
[2016-11-30 07:09] LABS: ANISOCYTOSIS SL; HYPOCHROMIA SL; TOXIC GRANULATION SL; VACUOLIZATION SL
[2016-11-30 07:10] LABS: PLATELET COUNT 587 X10e3 (140-420); REACTIVE LYMPHS PRESENT
[2016-11-30 07:28] LABS: ALBUMIN SERUM 1.8 g/dL (3.5-5.0); ALKALINE PHOSPHATASE 132 U/L (32-92); ALT (SGPT) 21 U/L (10-40); AST (SGOT) 26 U/L (10-42); BLOOD UREA NITROGEN 9 mg/dL (9-23); CALCIUM SERUM 8.4 mg/dL (8.4-10.2); CARBON DIOXIDE 28 mmol/L (22-31); CHLORIDE 98 mmol/L (100-111); CREATININE SERUM 0.5 mg/dL (0.6-1.4); GLOM FILT RATE Estimated 120.2 mL/min (>60); GLUCOSE FASTING 158 mg/dL (70-110); MAGNESIUM 1.6 mg/dL (1.6-3.0); PHOSPHOROUS 4.1 mg/dL (2.5-4.6); POTASSIUM 4.1 mmol/L (3.5-5.1); PROTEIN TOTAL SERUM 6.4 g/dL (6.0-8.3); SODIUM 135 mmol/L (135-145)
[2016-11-30 07:29] LABS: BILIRUBIN,TOTAL <0.1 mg/dL (0.2-2.0)
[2016-11-30 18:18] LABS: URINE APPEARANCE CLEAR; URINE BILIRUBIN NEG (NEG); URINE BLOOD NEG (NEG); URINE COLOR YELLOW; URINE GLUCOSE NEG (NEG); URINE KETONE NEG (NEG); URINE LEUKOCYTE ESTERASE NEG (NEG); URINE NITRATE NEG (NEG); URINE PROTEIN NEG (NEG); URINE SPECIFIC GRAVITY 1.018 (1.003-1.035)
[2016-12-01 03:26] LABS: BASOPHIL# 0.1 X10e3 (0-0.3); BASOPHIL% 0.3 % (0-2.5); HEMATOCRIT 22.1 % (35.0-45.0); HEMOGLOBIN 7.1 gm/dL (12.0-16.0); LYMPHOCYTE# 2.4 X10e3 (1.0-3.5); LYMPHOCYTE% 9.3 % (17.0-45.0); MEAN CORPUSCULAR HEMOGLOBIN 30.1 PG (28-34); MEAN PLATELET VOLUME 6.5 FL (6.5-11.5); MONOCYTE# 1.3 X10e3 (0-1.0); MONOCYTE% 5.2 % (3.0-12.0); NEUTROPHIL# 22.3 X10e3 (1.5-7.1); NEUTROPHIL% 85.2 % (40-75); PLATELET COUNT 660 X10e3 (140-420); RED BLOOD COUNT 2.35 X10e (3.90-5.30); RED CELL DISTRIBUTION WIDTH 14.6 % (11.0-15.5); WHITE BLOOD COUNT 26.1 X10e3 (4.0-10.5)
[2016-12-01 03:27] LABS: DIFF IND NO
[2016-12-01 03:47] LABS: ALBUMIN SERUM 1.9 g/dL (3.5-5.0); BILIRUBIN,TOTAL 0.1 mg/dL (0.2-2.0); CREATININE SERUM 0.6 mg/dL (0.6-1.4); GLOM FILT RATE Estimated 113.2 mL/min (>60); MAGNESIUM 1.8 mg/dL (1.6-3.0); POTASSIUM 4.2 mmol/L (3.5-5.1); PROTEIN TOTAL SERUM 6.3 g/dL (6.0-8.3)
[2016-12-02 03:04] LABS: HEMATOCRIT 30.8 % (35.0-45.0); MEAN CORPUSCULAR HGB CONC 33.2 g/dL (30-36); MEAN PLATELET VOLUME 6.4 FL (6.5-11.5); RED BLOOD COUNT 3.41 X10e (3.90-5.30); RED CELL DISTRIBUTION WIDTH 17.4 % (11.0-15.5); WHITE BLOOD COUNT 19.5 X10e3 (4.0-10.5)
[2016-12-02 03:05] LABS: MEAN CELL VOLUME 90.5 FL (83-96)
[2016-12-02 03:06] LABS: HEMOGLOBIN 10.2 gm/dL (12.0-16.0)
[2016-12-02 03:25] LABS: BUN/CREATININE RATIO 28.33; CALCIUM SERUM 8.2 mg/dL (8.4-10.2); CREATININE SERUM 0.6 mg/dL (0.6-1.4); GLOM FILT RATE Estimated 113.2 mL/min (>60); MAGNESIUM 1.7 mg/dL (1.6-3.0); POTASSIUM 4.4 mmol/L (3.5-5.1)
[2016-12-02 14:15] LABS: INR 1.1; PARTIAL THROMBOPLASTIN TIME 25.7 SECONDS (23.5-31.3); PROTHROMBIN TIME (PATIENT) 11.8 SECONDS (10.0-11.7)
[2016-12-03 03:21] LABS: HEMOGLOBIN 10.2 gm/dL (12.0-16.0); MEAN CELL VOLUME 90.6 FL (83-96); MEAN CORPUSCULAR HEMOGLOBIN 29.8 PG (28-34); MEAN CORPUSCULAR HGB CONC 32.9 g/dL (30-36); MEAN PLATELET VOLUME 6.4 FL (6.5-11.5); RED BLOOD COUNT 3.42 X10e (3.90-5.30); RED CELL DISTRIBUTION WIDTH 16.7 % (11.0-15.5); WHITE BLOOD COUNT 20.6 X10e3 (4.0-10.5)
[2016-12-03 03:41] LABS: BUN/CREATININE RATIO 18.57; CALCIUM SERUM 8.1 mg/dL (8.4-10.2); CREATININE SERUM 0.7 mg/dL (0.6-1.4); GLOM FILT RATE Estimated 107.6 mL/min (>60); MAGNESIUM 1.8 mg/dL (1.6-3.0); POTASSIUM 4.4 mmol/L (3.5-5.1)
[2016-12-04 04:08] LABS: BASOPHIL# 0.1 X10e3 (0-0.3); BASOPHIL% 0.6 % (0-2.5); HEMATOCRIT 31.7 % (35.0-45.0); HEMOGLOBIN 10.4 gm/dL (12.0-16.0); LYMPHOCYTE# 0.9 X10e3 (1.0-3.5); LYMPHOCYTE% 4.2 % (17.0-45.0); MEAN CELL VOLUME 91.4 FL (83-96); MEAN CORPUSCULAR HGB CONC 32.8 g/dL (30-36); MEAN PLATELET VOLUME 6.4 FL (6.5-11.5); MONOCYTE# 0.2 X10e3 (0-1.0); MONOCYTE% 0.8 % (3.0-12.0); NEUTROPHIL% 94.4 % (40-75); PLATELET COUNT 667 X10e3 (140-420); RED BLOOD COUNT 3.47 X10e (3.90-5.30); WHITE BLOOD COUNT 22.3 X10e3 (4.0-10.5)
[2016-12-04 04:16] LABS: DIFF IND YES
[2016-12-04 04:25] LABS: CALCIUM SERUM 8.3 mg/dL (8.4-10.2); CREATININE SERUM 0.5 mg/dL (0.6-1.4); GLOM FILT RATE Estimated 120.2 mL/min (>60); POTASSIUM 4.4 mmol/L (3.5-5.1)
[2016-12-04 05:08] LABS: PLATELET ESTIMATE INCREASED (NORMAL)
[2016-12-04 05:09] LABS: ANISOCYTOSIS SL
[2016-12-05 04:11] LABS: BASOPHIL# 0.1 X10e3 (0-0.3); BASOPHIL% 0.5 % (0-2.5); EOSINOPHIL# 0.1 X10e3 (0-0.7); EOSINOPHIL% 0.3 % (0.0-7.0); HEMATOCRIT 33.4 % (35.0-45.0); HEMOGLOBIN 10.6 gm/dL (12.0-16.0); LYMPHOCYTE# 2.9 X10e3 (1.0-3.5); LYMPHOCYTE% 11.1 % (17.0-45.0); MEAN CELL VOLUME 93.3 FL (83-96); MEAN CORPUSCULAR HEMOGLOBIN 29.6 PG (28-34); MEAN CORPUSCULAR HGB CONC 31.7 g/dL (30-36); MEAN PLATELET VOLUME 6.4 FL (6.5-11.5); MONOCYTE# 0.9 X10e3 (0-1.0); MONOCYTE% 3.3 % (3.0-12.0); NEUTROPHIL# 21.9 X10e3 (1.5-7.1); NEUTROPHIL% 84.8 % (40-75); PLATELET COUNT 793 X10e3 (140-420); RED BLOOD COUNT 3.58 X10e (3.90-5.30); WHITE BLOOD COUNT 25.9 X10e3 (4.0-10.5)
[2016-12-05 04:12] LABS: BUN/CREATININE RATIO 32.5; CALCIUM SERUM 8.8 mg/dL (8.4-10.2); CREATININE SERUM 0.4 mg/dL (0.6-1.4); DIFF IND NO; GLOM FILT RATE Estimated 129.4 mL/min (>60); MAGNESIUM 1.8 mg/dL (1.6-3.0); POTASSIUM 5.3 mmol/L (3.5-5.1)
[2016-12-06 03:08] LABS: HEMATOCRIT 30.6 % (35.0-45.0); MEAN CELL VOLUME 91.1 FL (83-96); MEAN CORPUSCULAR HEMOGLOBIN 29.8 PG (28-34); MEAN CORPUSCULAR HGB CONC 32.7 g/dL (30-36); MEAN PLATELET VOLUME 6.1 FL (6.5-11.5); RED BLOOD COUNT 3.36 X10e (3.90-5.30); RED CELL DISTRIBUTION WIDTH 15.8 % (11.0-15.5); WHITE BLOOD COUNT 15.7 X10e3 (4.0-10.5)
[2016-12-06 03:32] LABS: CALCIUM SERUM 8.6 mg/dL (8.4-10.2); CREATININE SERUM 0.4 mg/dL (0.6-1.4); GLOM FILT RATE Estimated 129.4 mL/min (>60); MAGNESIUM 1.9 mg/dL (1.6-3.0)
[2016-12-06] MEDS ORDERED: ALBUTEROL MININEB NEB (10:57)
[2016-12-06] MEDS ORDERED: PREDNISONE PO (10:58)
[2016-12-06] MEDS ORDERED: SYMBICORT INH (10:58)
[2016-12-06] MEDS ORDERED: VIBRAMYCIN100 M1 PO (10:59)
[2016-12-06] MEDS ORDERED: PROTONIX PO (10:59)
[2016-12-06] MEDS ORDERED: PROAIR HFA8.5 GM INH (10:59)
[2016-12-06] MEDS ORDERED: DIFLUCAN PO (11:00)
[2016-12-06] MEDS ORDERED: LORTAB 7.5-3251 EACH PO (11:00)
== END 2016-12-06 14:16 | disposition home health service (06) | DRG 853 ==
LOC: CED 14:56 → CPACUOF 17:22 → CICCU3 18:15 → CPACUOF 18:15 → CICCU3 19:48 → CPACUOF 19:48 → CICCU3 19:48 → C4C 11-27 11:56
PROVIDERS: Emergency Medicine; Family Medicine; Internal Medicine; Nurse Practitioner; Radiology Diagnostic Radiology; Specialist; Surgery
PROC: 0DU907Z Supplement Duodenum with Autologous Tissue Substitute, Open Approach (ICD-10-PCS; principal; 2016-11-24)
PROC: 0W9G00Z Drainage of Peritoneal Cavity with Drainage Device, Open Approach (ICD-10-PCS; 2016-11-24)
PROC: B24BZZZ Ultrasonography of Heart with Aorta (ICD-10-PCS; 2016-11-29)
PROC: 30233N1 Transfusion of Nonautologous Red Blood Cells into Peripheral Vein, Percutaneous Approach (ICD-10-PCS; 2016-12-01)
PROC: 3E0U33Z Introduction of Anti-inflammatory into Joints, Percutaneous Approach (ICD-10-PCS; 2016-12-02)
DX: A41.9 Sepsis, unspecified organism (principal); K25.5 Chronic or unspecified gastric ulcer with perforation; J96.00 Acute respiratory failure, unspecified whether with hypoxia or hypercapnia; R65.21 Severe sepsis with septic shock; I50.9 Heart failure, unspecified; D62 Acute posthemorrhagic anemia; E87.1 Hypo-osmolality and hyponatremia; K56.7 Ileus, unspecified; L03.116 Cellulitis of left lower limb; N39.0 Urinary tract infection, site not specified; J44.9 Chronic obstructive pulmonary disease, unspecified; F10.10 Alcohol abuse, uncomplicated; M54.9 Dorsalgia, unspecified; M17.12 Unilateral primary osteoarthritis, left knee; F17.210 Nicotine dependence, cigarettes, uncomplicated; F12.10 Cannabis abuse, uncomplicated; F15.10 Other stimulant abuse, uncomplicated; B96.1 Klebsiella pneumoniae [K. pneumoniae] as the cause of diseases classified elsewhere; F11.10 Opioid abuse, uncomplicated; D64.9 Anemia, unspecified; N73.9 Female pelvic inflammatory disease, unspecified; E87.6 Hypokalemia; E87.5 Hyperkalemia; E83.42 Hypomagnesemia
CPT/HCPCS: 36415; 71010; 71020; 72192; 73562; 74020; 74177; 74241; 80048; 80053; 80076; 80202; 80307; 81003; 82150; 82308; 82565; 83605; 83690; 83735; 83880; 84100; 84132; 84439; 84443; 84703; 85025; 85027; 85610; 85730; 86592; 86850; 86900; 86901; 86923; 87040; 87086; 87088; 87186; 93306; 93971; 94640; 94664; 94760; 94761; 96365; 96375; 97163; 97165; 99291; C9113; G0480; J1040; J1100; J1170; J1940; J2060; J2185; J2250; J2270; J2370; J2405; J2543; J2550; J2765; J2920; J3010; J3370; J3411; J3475; J3480; J7042; P9016; Q9967

== ENCOUNTER → 2016-12-13 | Outpatient (CLI) | payer OTHER ==
[~2016-12-13] MED LIST changes: +ALBUTEROL MININEB NEB; +DIFLUCAN PO; +LORTAB 7.5-3251 EACH PO; +NO MEDICATIONS; +PREDNISONE PO; +PROAIR HFA8.5 GM INH; +PROTONIX PO; +SYMBICORT INH; +VIBRAMYCIN100 M1 PO
--- NOTE | ~2016-12-13 | CT2 ---
[facility] A Service [facility] RADIOLOGY TEXT RESULTS PATIENT: CARLO CORREIA [facility] UNIT #: [id number] AGE: [address]: Yogi Daley MD SEX: F ORDER DR: [id number] [place] [id number] [facility]. [place], [place] [address] [id number] MR#: [id number] Acc #: [id number] NAME: CARLO CORREIA : 1975 SEX: F STUDY DATE/TIME: 12/13/2016 15:42 UNIT: [facility] ROOM: STUDY DESCRIPTION: CT Abd and Pelv W Cont Attending Physician: Yogi Daley M.D. Ordering Physician: Yogi Daley M.D. Primary Care Physician: Primary Care Physician No MEDICAL IMAGING REPORT This report is preliminary unless electronic signature is present EXAM CT abdomen and pelvis with contrast INDICATIONS Generalized abdominal pain since abdominal surgery on 11/23/2016. PROCEDURE Contrast-enhanced CT of the abdomen and pelvis. This CT exam was performed with one or more of the following radiation dose reduction techniques: automatic control, adjustment of mA and/or kV according to patient size, and iterative reconstruction. COMPARISON None. FINDINGS The previously demonstrated right pleural effusion has resolved. ABDOMEN WITH CONTRAST: No liver or splenic lesion. Liver measures 18.3 cm. Spleen mildly enlarged at 13.8 cm. Kidneys adrenal glands pancreas unremarkable. Unremarkable gallbladder. The bowel loops are nondilated. Moderate colonic stool burden. The appendix is normal. There is a small rim-enhancing collection along the inferior tip of the liver, that measures 3.9 x 1.6 cm. Previously measured 6.0 x 1.3 cm. There are two small fluid collections located between bowel loops in the left mid abdomen, 1 measuring 2.5 cm and the other 1.2 cm. These fluid pockets are slightly smaller than on the prior. No evidence for new abscess. Postoperative change in the anterior abdominal wall with skin rakesh in place. There is a thin fluid in the abdominal wall at the operative site, [facility] A Service of [facility] RADIOLOGY TEXT RESULTS PATIENT: CARLO CORREIA LOCATION: [facility] : 75 UNIT #: [id number] AGE: [address]: Yogi Daley MD SEX: F ORDER DR: probably small seroma. No drainable abdominal wall fluid collection. PELVIS WITH CONTRAST: Rim-enhancing fluid collection in the cul-de-sac measures 6.7 x 3.8 cm previously 13.4 x 3.7 cm. Stable appearance of a large right adnexal dermoid. No aggressive appearing bone lesion. IMPRESSION 1. Persistent but slightly smaller abdominal and pelvic abscesses as detailed above. There is no evidence for new abdominal abscess. 2. Postoperative appearance of the anterior abdominal wall with a thin amount of fluid in the operative site, probably a seroma. No drainable fluid collection in the abdominal wall. 3. Other incidental findings detailed above Dictated by... Scott Bauer M.D. THIS IS AN ELECTRONICALLY VERIFIED REPORT Scott Bauer M.D. at 12/15/2016 7:11 AM ERIC/geovanni TD: 12/14/2016 14:40 JOB #: [id number] MEDICAL IMAGING REPORT Page 1 of 1 COPY
[2016-12-13 20:11] LABS: POC - CREATININE 0.69 mg/dL (0.44-1.03); POC - GFR >60.0 mL/min (>60)
== END | disposition home or self-care (01) ==
LOC: CCAT 13:50
PROVIDERS: Surgery
DX: R10.84 Generalized abdominal pain (principal); N73.9 Female pelvic inflammatory disease, unspecified; L02.211 Cutaneous abscess of abdominal wall; Z98.890 Other specified postprocedural states
CPT/HCPCS: 74177; 82565; Q9967

== ENCOUNTER 2017-02-22 07:57 | Emergency (ER) | payer OTHER ==
[~2017-02-22] VITALS: Ht 162.6 cm; Wt 63.5 kg
--- NOTE | ~2017-02-22 | CT4 ---
[facility] A Service of [facility] & [facility] RADIOLOGY TEXT RESULTS PATIENT: CARLO CORREIA LOCATION: [facility] : 75 UNIT #: [id number] AGE: [address]: Daniel Eden MD SEX: F ORDER DR: [id number] [facility] [address] [place], [place] [address] [id number] E MR#: [id number] Acc #: [id number] NAME: CARLO CORREIA : 1975 SEX: F STUDY DATE/TIME: 02/22/2017 10:06 UNIT: [facility] ROOM: STUDY DESCRIPTION: CT Abd and Pelv Wo Cont Attending Physician: Daniel Eden M.D. Ordering Physician: Daniel Eden M.D. Primary Care Physician: No Primary Care Physician MEDICAL IMAGING REPORT This report is preliminary unless electronic signature is present EXAM CT of the abdomen and pelvis without contrast. INDICATION Abdominal pain and swelling for 2 weeks. Patient had surgery for ulcers about 6 months ago and now has swelling where the surgery was. TECHNIQUE Axial CT images were obtained from the dome of the diaphragm through symphysis pubis following the administration of oral contrast material only. This CT exam was performed with one or more of the following radiation dose reduction techniques: Automatic exposure control, adjustment of mA and/or kV according to patient size, and iterative reconstruction. FINDINGS There is a 4 mm nodule identified within the right lower lobe which has been present on exams dating back to May of 2007 and this is benign. No additional followup is necessary. The stomach appears unremarkable as is the proximal small bowel. There is no evidence of mechanical bowel obstruction. The liver and spleen appear unremarkable given unenhanced technique as are the gallbladder, pancreas, adrenal glands and kidneys. Patient appears to be status post ventral hernia repair with mesh on prior examination. There was significant stranding seen within the omentum which is not significantly improved when compared to the prior examination, I do not see any evidence of recurrent fascial defect, although bowel does project out towards the mesh. Again, however, there is no evidence of mechanical bowel obstruction. Patient's appendix is visualized and is within normal limits. This patient has a large dermoid cyst that measures smaller than on the examination from February of 2016 but still measures up to 9.3 x 6 cm. It was not well seen on a prior exam from 2006. As was discussed on prior imaging, the [facility] A Service of [facility] & [facility] RADIOLOGY TEXT RESULTS PATIENT: CARLO CORREIA [id number] 75 UNIT #: [id number] AGE: [address]: Daniel Eden MD SEX: F ORDER DR: size of this lesion predisposes this patient for ovarian torsion. A gynecologic consultation is strongly recommended. Left ovary appears somewhat prominent and may have a cyst on it incompletely evaluated on this examination but certainly not an unexpected finding in a 41-year-old patient. On prior exam from November of 2016, patient was noted to have an abscess within the pelvis that appears to have resolved. Review of bony windows does not demonstrate any aggressive osseous abnormalities. IMPRESSION 1. Patient is again noted to have changes of ventral hernia repair with mesh. I do not see any convincing evidence of recurrent hernia but I think there is probably some increasing diastasis of the rectus musculature when compared to the exam from December 13, 2016. Patient does have loops of bowel within this area but there is no evidence of obstruction. 2. Large right dermoid cyst measuring at least 9.3 x 6 cm. This is stable to perhaps slightly smaller when compared to February of 2016. However, its large size predisposes this patient to ovarian torsion and gynecologic consultation for consideration for removal is strongly recommended. 3. Suspected left ovarian cyst not well seen on this unenhanced study. 4. Previously identified pelvic abscess has resolved. I do not see any new abscesses on prior study. Patient had fairly extensive stranding seen within the omentum which appears improved when compared to the prior examination. Dictated by... Agueda Hillman M.D. THIS IS AN ELECTRONICALLY VERIFIED REPORT Agueda Hillman M.D. at 02/22/2017 5:04 PM AFF/bd TD: 02/22/2017 15:11 JOB #: [id number] MEDICAL IMAGING REPORT Page 1 of 1 COPY
[2017-02-22 09:01] LABS: BASOPHIL# 0.1 X10e3 (0-0.3); BASOPHIL% 0.8 % (0-2.5); EOSINOPHIL% 0.3 % (0.0-7.0); HEMATOCRIT 40.8 % (35.0-45.0); HEMOGLOBIN 13.7 gm/dL (12.0-16.0); LYMPHOCYTE# 2.8 X10e3 (1.0-3.5); LYMPHOCYTE% 25.9 % (17.0-45.0); MEAN CORPUSCULAR HEMOGLOBIN 30.2 PG (28-34); MEAN CORPUSCULAR HGB CONC 33.5 g/dL (30-36); MEAN PLATELET VOLUME 7.4 FL (6.5-11.5); MONOCYTE# 0.6 X10e3 (0-1.0); MONOCYTE% 5.3 % (3.0-12.0); NEUTROPHIL# 7.3 X10e3 (1.5-7.1); NEUTROPHIL% 67.7 % (40-75); PLATELET COUNT 292 X10e3 (140-420); RED BLOOD COUNT 4.53 X10e (3.90-5.30); RED CELL DISTRIBUTION WIDTH 16.4 % (11.0-15.5); WHITE BLOOD COUNT 10.8 X10e3 (4.0-10.5)
[2017-02-22 09:04] LABS: DIFF IND NO
[2017-02-22 09:24] LABS: URINE SOURCE CLEAN CATCH
[2017-02-22 09:27] LABS: AMPHETAMINE POS (NEG); BARBITURATES NEG (NEG); BENZODIAZEPINES NEG (NEG); COCAINE POS (NEG); MARIJUANA POS (NEG); OPIATES NEG (NEG); TRICYCLIC ANTIDEPRESSANTS NEG (NEG); U METHADONE NEG (NEG)
[2017-02-22 09:28] LABS: URINE APPEARANCE CLEAR; URINE BILIRUBIN NEG (NEG); URINE BLOOD NEG (NEG); URINE COLOR YELLOW; URINE GLUCOSE NEG (NEG); URINE KETONE NEG (NEG); URINE LEUKOCYTE ESTERASE NEG (NEG); URINE NITRATE NEG (NEG); URINE PROTEIN NEG (NEG); URINE SPECIFIC GRAVITY 1.016 (1.003-1.035); URINE UROBILINOGEN 0.2 MG/DL (NEG)
[2017-02-22 09:40] LABS: ALCOHOL BLOOD 98 mg/dL (0); ALKALINE PHOSPHATASE 78 U/L (32-92); ALT (SGPT) 33 U/L (10-40); AMYLASE 14 U/L (0-46); AST (SGOT) 38 U/L (10-42); BILIRUBIN,TOTAL 0.3 mg/dL (0.2-2.0); BLOOD UREA NITROGEN 8 mg/dL (9-23); CALCIUM SERUM 8.5 mg/dL (8.4-10.2); CARBON DIOXIDE 22 mmol/L (22-31); CHLORIDE 107 mmol/L (100-111); CREATININE SERUM 0.5 mg/dL (0.6-1.4); GLOM FILT RATE Estimated 120.2 mL/min (>60); GLUCOSE FASTING 96 mg/dL (70-110); LIPASE 26 U/L (22-51); POTASSIUM 3.4 mmol/L (3.5-5.1); PROTEIN TOTAL SERUM 7.3 g/dL (6.0-8.3); SODIUM 141 mmol/L (135-145)
[2017-02-22 09:41] LABS: BILIRUBIN, DIRECT <0.1 mg/dL (0.0-0.2); BILIRUBIN,INDIRECT 0.2 mg/dL (0.0-0.9)
== END 2017-02-22 11:22 | disposition left against medical advice (07) ==
LOC: CED 07:57
PROVIDERS: Emergency Medicine
DX: N83.201 Unspecified ovarian cyst, right side (principal); K43.9 Ventral hernia without obstruction or gangrene; J44.9 Chronic obstructive pulmonary disease, unspecified; F17.200 Nicotine dependence, unspecified, uncomplicated; Z79.899 Other long term (current) drug therapy
CPT/HCPCS: 36415; 74176; 80048; 80076; 80307; 81003; 82150; 83690; 84703; 85025; 99284; G0480